=== PATIENT | female | born 2005 | race African-American/Black ===

== ENCOUNTER 2024-07-18 01:48 | Emergency (ER) | payer BC, SELFPAY ==
[2024-07-18 01:51] VITALS: BP 118/73; PULSE 67; RESP 16; TEMP 36.4; O2SAT 99; BMI 33.8
--- NOTE | 2024-07-18 02:15 | ED_ITS ---
HPI - General Adult General Chief complaint: Ear Problems Stated complaint: ear issue Time Seen by Provider: 07/18/24 01:55 Source: patient, RN notes reviewed and old records reviewed Mode of arrival: ambulatory Limitations: no limitations History of Present Illness ED Provider: Althea HPI narrative: 18-year-old female presents for evaluation of right ear discomfort. She reports on and off for about 1 week's he has had muffled sounds in the right ear and some pressure or discomfort She reports that she uses cotton swabs to clean her ears. Denies any drainage from the ear. He denies any fevers or chills Related Data Allergies Allergy/AdvReac Type Severity Reaction Status Date / Time No Known Allergies Allergy Verified 07/18/24 01:51 Review of Systems Constitutional: Constitutional: Denies body ache(s), Denies chills and Denies fever(s) Eyes: Eyes: Denies blurry vision ENT: Denies ear discharge and Reports otalgia PMFSH Social History Social History Smoked in Last 30 Days: No Use of substances other than those prescribed or required for medical reasons: No Advance Directives: No Advance Directives Information Provided: Yes Patient : No Physical Exam ED Vital Signs: Vital Signs - 24 hr 07/18/24 01:51 Temperature 97.5 F Pulse Rate 67 Respiratory Rate 16 Blood Pressure 118/73 Pulse Oximetry 99 Oxygen Delivery Method Room Air BMI result Body Mass Index 33.8 Const General: healthy appearing, comfortable, no acute distress, alert and awake Nutritional Appearance: well nourished Orientation/consciousness: patient oriented x3 HENMT Other: Unable to visualize tympanic membrane bilateral due to significant cerumen impaction Head: Yes normocephalic and Yes atraumatic Skin General skin exam: elasticity normal Neuro General: patient oriented x3 Cranial nerves: Yes Bilaterally intact EOM present Cognition (Neuro): normal cognition Extrem Other: Moving all extremities well without any obvious deformities Medical Decision Making Medical Decision Making [facility] Narrative: I used a solution of warm water mixed with hydrogen peroxide, about 150 cc in each ear. There was a significant amount of cerumen removed from the ears bilaterally. I used a curette to remove large amount of cerumen. The patient tolerated the procedure well, there were no complications. Postprocedure ty mpanic membranes pearly white without perforation or effusion. Differential Diagnosis Differential Diagnoses: The differential diagnosis associated with the presentation includes Cerumen impaction Otitis media Otitis externa Mastoiditis Discharge Plan Discharge Clinical Impression: Impacted cerumen of right ear Patient Disposition: Home, Self-Care Instructions: Carbamide Peroxide (Into the ear) Additional Instructions: You had a large amount of cerumen buildup in the right ear. I recommend that you avoid sticking anything in your ear including cotton swabs You may use over the counter debrox drops to help soften and remove ear wax in the future Print Language: Green[place]ic
--- NOTE | 2024-07-18 02:16 | PC.NURSE ---
this nurse assisted LILIANE Haider with irrigation of right ear debris causing muffled ear sounds. observed many small bits of cerumen as well as three larger pieces approx 1 cm evacuated, discarded. patient endorses feeling like she is falling and hears bubbling of hydrogen peroxide after procedure complete, laid back in bed. after about 5 minutes, patient expresses feeling alot better and states she can finally hear. plan to treat other side per patient request
[2024-07-18 02:48] VITALS: BP 118/73; PULSE 67; RESP 16; TEMP 36.4; O2SAT 99
--- NOTE | 2024-07-18 03:00 | PC.NURSE ---
pt states dizziness resolved. states her muffled hearing is resolved. ambulated steadily with friend to their lyft ride at main entrance
== END 2024-07-18 03:00 | disposition home or self-care (01) ==
PROVIDERS: Emergency Provider Internal Medicine
DX: H92.01 Otalgia, right ear (principal); H61.21 Impacted cerumen, right ear
CPT/HCPCS: 69209; 99283; 99284